=== PATIENT | male | born 1980 | race Caucasian/White ===

== ENCOUNTER 2018-10-01 13:38 | Inpatient (IN) | payer SELFPAY ==
[~2018-10-01] VITALS: Ht 195.6 cm; Wt 149.2 kg
[2018-10-01] MEDS ORDERED: ZESTRIL40 MG PO (13:47)
[2018-10-01 14:06] LABS: BASOPHILS 0.1 % (0-2); EOSINOPHILS 0.9 % (0-7); HEMATOCRIT 45.4 % (42.0-54.0); HEMOGLOBIN 16.5 g/dL (13.5-17.5); IMMATURE GRANULOCYTES 0.4 % (0-5); LYMPHOCYTES 22.1 % (15-50); MCH 32.2 pg (26.0-34.0); MCHC 36.3 g/dL (31.0-37.0); MCV 88.5 fL (80.0-100.0); MEAN PLATELET VOLUME 9.4 fL (7.4-10.4); MONOCYTES 5.1 % (2-11); NEUTROPHILS 71.4 % (40-80); PLATELET COUNT 319 10x3/uL (130-400); RBC 5.13 10x6/uL (4.20-6.10); RDW 12.6 % (11.5-14.5); WBC 16.4 10x3/uL (4.8-10.8)
[2018-10-01 14:12] LABS: APPEARANCE CLEAR (CLEAR); BILIRUBIN NEGATIVE (NEGATIVE); COLOR YELLOW (YELLOW); GLUCOSE 250 mg/dL (NEGATIVE); KETONE NEGATIVE (NEGATIVE); NITRITE NEGATIVE (NEGATIVE); PROTEIN 1+ mg/dL (NEGATIVE); UROBILINOGEN NORMAL (NORMAL)
[2018-10-01 14:13] LABS: BACTERIA FEW /hpf (NONE SEEN); EPITHELIAL CELLS 0-5 /hpf (0-5); RED CELLS - URINE 0-5 /hpf (0-5); WHITE CELLS - URINE 0-5 /hpf (0-5)
[2018-10-01 14:17] LABS: ANION GAP 11.5 mmol/L (8-16); BILIRUBIN - TOTAL 0.72 mg/dL (0.2-1.3); CALCIUM 9.6 mg/dL (8.5-10.1); CREATININE - SERUM 1.3 mg/dL (0.6-1.3); POTASSIUM - SERUM 4.5 mmol/L (3.5-5.1); PROTEIN - SERUM 8.6 g/dL (6.4-8.2)
[2018-10-01 16:49] VITALS: BP 138/72
--- NOTE | 2018-10-01 17:25 | NUR ---
RECEIVED PT TO ROOM 1213 VIA WHEELCHAIR, PT WAS ABLE TO TRANSFER SELF FROM WHEELCHAIR TO BED WITH STEADY GATE. PT A/O X4, RESP EVEN AND NONLABORED ON RA. PT RATES PAIN 3/10 AT THIS TIME. PT ACCOMPANIED BY FEMALE FRIEND. WILL ASSESS PT AND START PLAN OF CARE.
[2018-10-01 17:44] VITALS: BP 140/85; BMI 39.1
--- NOTE | 2018-10-01 19:34 | NUR ---
PATIENT RESTING IN BED WITH NO S/S OF DISTRESS AND DENIES NEEDS AT THIS TIME. BED IN LOWEST POSITION AND CALL LIGHT WITHIN REACH. ENCOURAGED THE PATIENT TO CALL IF SHE HAS NEEDS. WILL CONTINUE TO MONITOR.
[2018-10-01 20:00] VITALS: BP 137/86
[2018-10-02] VITALS (7 sets, daily range): BP systolic 132–152; BP diastolic 70–87; BMI 39.0
[2018-10-02 06:34] LABS: BASOPHILS 0.2 % (0-2); EOSINOPHILS 1.6 % (0-7); HEMOGLOBIN 14.7 g/dL (13.5-17.5); IMMATURE GRANULOCYTES 0.6 % (0-5); LYMPHOCYTES 20.8 % (15-50); MCH 31.4 pg (26.0-34.0); MCV 89.7 fL (80.0-100.0); MEAN PLATELET VOLUME 9.6 fL (7.4-10.4); MONOCYTES 7.9 % (2-11); NEUTROPHILS 68.9 % (40-80); PLATELET COUNT 271 10x3/uL (130-400); RBC 4.68 10x6/uL (4.20-6.10); WBC 16.1 10x3/uL (4.8-10.8)
[2018-10-02 06:53] LABS: CALC OSMOLALITY 270 mosm/kg (275-300); CALCIUM 8.7 mg/dL (8.5-10.1); CARBON DIOXIDE 29.8 mmol/L (21.0-32.0); CHLORIDE - SERUM 99 mmol/L (98-107); CHOLESTEROL, TOTAL 154 mg/dL (0-200); CREATININE - SERUM 1.1 mg/dL (0.6-1.3); GLUCOSE 107 mg/dL (74-106); HDL CHOLESTEROL 22 mg/dL (32-96); LDL CHOLESTEROL 101 mg/dL (0-100); LDL-HDL RATIO 4.6 ratio (1.5-3.5); POTASSIUM - SERUM 4.4 mmol/L (3.5-5.1); SODIUM 136 mmol/L (136-145); TRIGLYCERIDE 158 mg/dL (30-200); eGFR NON AFRICAN AMERICAN 80 mL/min (90-120)
[2018-10-02 06:54] LABS: UREA NITROGEN 11 mg/dL (7-18)
--- NOTE | 2018-10-02 07:51 | NUR ---
ROUNDING DONE WITH PATIENT INQUIRING ON LAB VALUES. I GAVE HIM WHAT WAS ON THE COMPUTER AT THIS TIME. LEFT AC PIV SEEN WITH NS INFUSING AT 125 CC/HR ALONG WITH OCCUPATIONAL HEALTH PROFESSIONAL MS FOR PAIN CONTROL. RATES PAIN 4/10 THIS AM. GLASSES ON. WILL MONITOR. ON CLEAR LIQUIDS.
[2018-10-02 09:08] LABS: AMYLASE - SERUM 247 U/L (25-115); LIPASE 1318 U/L (73-393)
--- NOTE | 2018-10-02 10:50 | NUR ---
JORGE D'CD ORDERED WITH MYSELF AND ELLEN VALDESLEAD BI DEVELOPER.
--- NOTE | 2018-10-02 12:04 | NUR ---
STILL NPO FOR ULTRASOUND OF ABDOMEN.
--- NOTE | 2018-10-02 12:14 | MORECARE ---
CASE MANAGEMENT DISCHARGE SUMMARY PATIENT: MANPREET MOE II UNIT: [id number] ADM DATE: 10/01/18 AGE: 38 : 82 SEX: M ROOM/BED: D.1213 AUTHOR: REINALDO PNIEDA PHYSICIAN: REFERRING PHYSICIAN: TONY LECHUGA MD DATE OF SERVICE: 10/02/18 Discharge Plan Patient Name: MANPREET MOE [facility] [facility] 1980 Planned Disposition: Home Anticipated Discharge Date: Discharge Date: Expected LOS: Initial Reviewer: [email or web address] Initial Review Date: 10/02/2018 Generated: 10/02/18 1:14 pm Patient Name: MANPREET MOE Page 53260 at 1214 All edits/amendments must be made on the electronic document DICTATION DATE: 10/02/18 1213 UNDERBASTER: ROLO 10/02/18 1213 RPT#: [id number] DC DATE: STATUS: ADM IN [facility] [address] [place] [address] END OF REPORT
--- NOTE | 2018-10-02 12:22 | MORECARE ---
CASE MANAGEMENT DISCHARGE SUMMARY PATIENT: MANPREET MOE II UNIT: [id number] ADM DATE: 10/01/18 AGE: 38 : 82 SEX: M ROOM/BED: D.1213 AUTHOR: REINALDO PINEDA PHYSICIAN: REFERRING PHYSICIAN: TONY LECHUGA MD DATE OF SERVICE: 10/02/18 Discharge Plan Patient Name: MANPREET MOE Facility: [facility]:[place] : 1980 Planned Disposition: Home Anticipated Discharge Date: Discharge Date: Expected LOS: Initial Reviewer: [email or web address] Initial Review Date: 10/02/2018 Generated: 10/02/18 1:22 pm Comments DCP- Discharge Planning Updated by [email or web address]: Sarah Taylor on 10/02/18 11:[address] Patient Name: MANPREET MOE Admission Status: ER Accout number: [id number] Admission Date: 10-01-2018 : 1980 Admission Diagnosis: Attending: TONY LECHUGA Current LOS: 1 Anticipated DC Date: Planned Disposition: Home Primary Insurance: UNINSURED DISCOUNT PLAN CM MEET WITH PT AFTER GETTING VERBAL CONSENT TO CONTINUE WITH INITAL ASSESSMENT AND DISCHARGE NEEDS. CM EDUCATED ON ROLE OF CM AND THE SERVICES AVALIABLE SUCH HH, REHAB AND DME SERVICES. PT LIVES AT HOME WITH FAMILY STATES HOME IS A SAFE DC PLAN. DENIES ANY CM NEEDS. CM WILL CONTINUE TO FOLLOW. Desulfurizer Operator: Sarah Taylor DCPIA - Discharge Planning Initial Assessment Updated by [email or web address]: Sarah Taylor on 10/02/18 12:15 pm * Is the patient Alert and Oriented? Yes * How many steps to enter\exit or inside your home? * PCP WISAM * Pharmacy [facility] * Preadmission Environment Home with Family * ADLs Independent * Verbal permission to speak to the caregivers and representatives has been obtained from the patient. N/A * Additional services required to return to the preadmission environment? No * Can the patient safely return to the preadmission environment? Yes * Has this patient been hospitalized within the prior 30 days at any hospital? No Last DP export: 10/02/18 11:14 a Patient Name: MANPREET MOE Page 24994 at 1222 All edits/amendments must be made on the electronic document DICTATION DATE: 10/02/181220 FARMWORKER ANIMAL: ROLO 10/02/181220 RPT#: [id number] DC DATE: STATUS: ADM IN [facility] [address] [place] [address] END OF REPORT
--- NOTE | 2018-10-02 12:42 | NUR ---
URINE CULTURE SENT TO LAB ORDERED.
--- NOTE | 2018-10-02 14:04 | NUR ---
DR LECHUGA IN TO SEE PATIENT.
--- NOTE | 2018-10-02 14:44 | NUR ---
STILL NPO AWAITING ULTRASOUND. GIRLFRIEND ASLEEP IN CHAIR.
--- NOTE | 2018-10-02 15:44 | NUR ---
CONSUMER ADVOCATE AT ROOM.
--- NOTE | 2018-10-02 16:20 | NUR ---
ULTRASOUND DONE. JELLO AND LARGE ICE WATER GIVEN TO PATIENT PER HIS REQUEST.
--- NOTE | 2018-10-02 16:47 | NUR ---
REFUSES SCD'S PATIENT IS UP AND DOWN TO RESTROOM.
--- NOTE | 2018-10-02 17:37 | NUR ---
PATIENT STATES TO "PASSING A WET FART". ON CLEAR LIQUIDS. GIRL FRIEND AT BEDSIDE. PATIENT STATES, " SO FAR I CAM KEEPING THE LIQUIDS DOWN". CALL LIGHT AT SIDE. WILL MONITOR.
--- NOTE | 2018-10-02 19:20 | NUR ---
PATIENT RESTING IN BED WITH NO S/S OF DISTRESS AND GUEST AT BEDSIDE. PATIENT DENIES NEEDS AT THIS TIME. BED IN LOWEST POSITION AND CALL LIGHT WITHIN REACH. ENCOURAGED THE PATIENT TO CALL IF SHE HAS NEEDS. WILL CONTINUE TO MONITOR.
[2018-10-03 04:00] VITALS: BP 140/76
--- NOTE | 2018-10-03 07:07 | NUR ---
LYING IN BED, EYES OPEN, APPEARS TO BE RESTING COMFORTABLY. LAB HERE TO DRAW BLOOD THIS AM. NORMAL SALINE AT 75ML/HR TO LEFT AC.ABLE TO VOICE ALL NEEDS. WILL NOTE ANY CHANGE.
[2018-10-03 07:23] LABS: BASOPHILS 0.2 % (0-2); EOSINOPHILS 1.8 % (0-7); HEMATOCRIT 41.4 % (42.0-54.0); HEMOGLOBIN 14.4 g/dL (13.5-17.5); IMMATURE GRANULOCYTES 0.3 % (0-5); MCH 31.4 pg (26.0-34.0); MCHC 34.8 g/dL (31.0-37.0); MCV 90.2 fL (80.0-100.0); MEAN PLATELET VOLUME 9.4 fL (7.4-10.4); MONOCYTES 8.3 % (2-11); NEUTROPHILS 67.4 % (40-80); PLATELET COUNT 244 10x3/uL (130-400); RBC 4.59 10x6/uL (4.20-6.10); RDW 12.9 % (11.5-14.5)
[2018-10-03 07:27] LABS: WBC 11.8 10x3/uL (4.8-10.8)
[2018-10-03 07:35] LABS: AMYLASE - SERUM 243 U/L (25-115); CALC OSMOLALITY 270 mosm/kg (275-300); CALCIUM 8.9 mg/dL (8.5-10.1); CARBON DIOXIDE 31.3 mmol/L (21.0-32.0); CHLORIDE - SERUM 101 mmol/L (98-107); CREATININE - SERUM 1.1 mg/dL (0.6-1.3); GLUCOSE 93 mg/dL (74-106); LIPASE 1220 U/L (73-393); POTASSIUM - SERUM 4.4 mmol/L (3.5-5.1); SODIUM 136 mmol/L (136-145); UREA NITROGEN 9 mg/dL (7-18); eGFR NON AFRICAN AMERICAN 80 mL/min (90-120)
[2018-10-03 07:40] VITALS: BP 155/89
--- NOTE | 2018-10-03 10:36 | NUR ---
I have reviewed this patient and I concur with the Shift Assessment completed by the Licensed Practical Nurse today this shift.
[2018-10-03 11:32] VITALS: BP 145/81
--- NOTE | 2018-10-03 13:50 | NUR ---
REFUSED SHOWER FOR TODAY.
[2018-10-03 15:36] VITALS: BP 136/77
--- NOTE | 2018-10-03 16:10 | NUR ---
DR GREENBERG IN TO SEE PATIENT.
[2018-10-03 16:24] VITALS: Ht 195.6 cm; Wt 149.2 kg
--- NOTE | 2018-10-03 19:07 | NUR ---
PT IN BED FAMILY AT BEDSIDE. PT REQUESTS PAIN MED WHEN HE GOES TO SLEEP.
[2018-10-03 20:04] VITALS: BP 156/85
[2018-10-04] VITALS: BP 142/80
[2018-10-04 04:15] VITALS: BP 133/78
[2018-10-04 06:48] LABS: BASOPHILS 0.3 % (0-2); EOSINOPHILS 2.1 % (0-7); IMMATURE GRANULOCYTES 0.4 % (0-5); LYMPHOCYTES 24.7 % (15-50); MCH 31.4 pg (26.0-34.0); MCV 89.7 fL (80.0-100.0); MEAN PLATELET VOLUME 9.2 fL (7.4-10.4); MONOCYTES 8.1 % (2-11); NEUTROPHILS 64.4 % (40-80); PLATELET COUNT 232 10x3/uL (130-400); RBC 4.46 10x6/uL (4.20-6.10); RDW 12.7 % (11.5-14.5); WBC 10.8 10x3/uL (4.8-10.8)
[2018-10-04 06:56] LABS: CALC OSMOLALITY 270 mosm/kg (275-300); CARBON DIOXIDE 28.5 mmol/L (21.0-32.0); CHLORIDE - SERUM 102 mmol/L (98-107); GLUCOSE 95 mg/dL (74-106); LIPASE 741 U/L (73-393); SODIUM 136 mmol/L (136-145); UREA NITROGEN 9 mg/dL (7-18); eGFR NON AFRICAN AMERICAN 89 mL/min (90-120)
--- NOTE | 2018-10-04 07:05 | NUR ---
ROUNDING DONE WITH PATIENT LOOKING AT CELL PHONE, FEMALE MEMBER IN CHAIR SLEEPING. GLASSES ON. ON ROOM AIR. OBESE. LEFT AC PIV SEEN WITH NS INFUSING AT 75 CC/HR. ON EP, NO LAB VALUES AT THIS TIME. WILL MONITOR.
[2018-10-04 07:13] LABS: AMYLASE - SERUM 160 U/L (25-115)
[2018-10-04 07:26] VITALS: BP 128/74
--- NOTE | 2018-10-04 07:41 | NUR ---
EP RESULTS ARE IN WITH K+ 4.0, NO NEED FOR ORAL SUPPLEMENTS.
[2018-10-04 11:27] VITALS: BP 151/80
--- NOTE | 2018-10-04 11:32 | NUR ---
B/P UP SLIGHTLY FROM THIS AM ALONG WITH SLIGHT FEVER. INSTRUCTED TO COUGH AND DEPP BREATH. AT BEDSIDE.
--- NOTE | 2018-10-04 13:05 | NUR ---
DR GREENBERG IN TO SEE PATIENT.
[2018-10-04 16:18] VITALS: BP 145/73
--- NOTE | 2018-10-04 17:48 | NUR ---
AND SON AT BEDSIDE. DENIES NEEDS AT THIS TIME.
--- NOTE | 2018-10-04 19:10 | NUR ---
PATIENT RESTING IN BED WITH FAMILY AT BEDSIDE AND DENIES NEEDS AT THIS TIME. BED IN LOWEST POSITION AND CALL LIGHT WITHIN REACH. ENCOURAGED THE PATIENT TO CALL IF HE HAS NEEDS. WILL CONTINUE TO MONITOR.
[2018-10-04 19:58] VITALS: BP 154/73
[2018-10-05 00:49] VITALS: BP 151/77
[2018-10-05 06:00] VITALS: BP 143/84
[2018-10-05 06:50] LABS: BASOPHILS 0.2 % (0-2); EOSINOPHILS 1.9 % (0-7); HEMATOCRIT 39.2 % (42.0-54.0); HEMOGLOBIN 13.9 g/dL (13.5-17.5); IMMATURE GRANULOCYTES 0.4 % (0-5); LYMPHOCYTES 26.7 % (15-50); MCH 31.2 pg (26.0-34.0); MCHC 35.5 g/dL (31.0-37.0); MCV 88.1 fL (80.0-100.0); MEAN PLATELET VOLUME 9.3 fL (7.4-10.4); MONOCYTES 8.8 % (2-11); PLATELET COUNT 240 10x3/uL (130-400); RBC 4.45 10x6/uL (4.20-6.10); RDW 12.5 % (11.5-14.5)
[2018-10-05 06:56] LABS: CALC OSMOLALITY 275 mosm/kg (275-300); CALCIUM 8.7 mg/dL (8.5-10.1); CARBON DIOXIDE 27.4 mmol/L (21.0-32.0); CHLORIDE - SERUM 104 mmol/L (98-107); CREATININE - SERUM 1.1 mg/dL (0.6-1.3); GLUCOSE 110 mg/dL (74-106); LIPASE 600 U/L (73-393); POTASSIUM - SERUM 3.9 mmol/L (3.5-5.1); SODIUM 138 mmol/L (136-145); UREA NITROGEN 9 mg/dL (7-18); eGFR NON AFRICAN AMERICAN 80 mL/min (90-120)
[2018-10-05 06:57] LABS: AMYLASE - SERUM 116 U/L (25-115)
[2018-10-05 07:44] VITALS: BP 152/96
--- NOTE | 2018-10-05 10:15 | NUR ---
Nutrition Follow Up: Chart reviewed. Pt is tolerating regular diet with 100% meal avg. +BM 10/02/18. Meds and labs reviewed. Rec continue current diet as tolerated. RD following.
[2018-10-05 11:15] VITALS: BP 147/88
--- NOTE | 2018-10-05 11:19 | NUR ---
PT RESTING IN BED. AT BEDSIDE. DENIES ANY NEEDS AT THIS TIME, WILL CONT TO FOLLOW POC
[2018-10-05] MEDS ORDERED: MIRALAX17 GM PO (11:56)
--- NOTE | 2018-10-05 12:25 | MORECARE ---
CASE MANAGEMENT DISCHARGE SUMMARY PATIENT: MANPREET MOE II UNIT: [id number] ADM DATE: 10/01/18 AGE: 38 : 82 SEX: M ROOM/BED: D.1213 AUTHOR: EDWIN,DOC PHYSICIAN: REFERRING PHYSICIAN: TONY LECHUGA MD DATE OF SERVICE: 10/05/18 Discharge Plan Patient Name: MANPREET MOE Facility: [facility]:[place] : 1980 Planned Disposition: Home Anticipated Discharge Date: Discharge Date: Expected LOS: Initial Reviewer: [email or web address] Initial Review Date: 10/02/2018 Generated: 10/05/18 1:25 pm Comments DCP- Discharge Planning Updated by [email or web address]: Daina Chung on 10/05/18 11:[address] PATIENT DISCHARGED TO HOME THIS AM. MIRALAX ORDERED 10/04/18 BUT FIRST DOSE GIVEN TODAY. DULCOLAX SUPP X1 10/04/18 ?? ONE BM SINCE ADMISSION. PATIENT WAS TO AMBULATE 10/04/18. IVFS DC'D AND WAS SALINE LOCKED . DCP- Discharge Planning Updated by [email or web address]: Sarah Taylor on 10/02/18 11:[address] Patient Name: MANPREET MOE Admission Status: ER Accout number: [id number] Admission Date: 10-01-2018 : 1980 Admission Diagnosis: Attending: TONY LECHUGA Current LOS: 1 Anticipated DC Date: Planned Disposition: Home Primary Insurance: UNINSURED DISCOUNT PLAN CM MEET WITH PT AFTER GETTING VERBAL CONSENT TO CONTINUE WITH INITAL ASSESSMENT AND DISCHARGE NEEDS. CM EDUCATED ON ROLE OF CM AND THE SERVICES AVALIABLE SUCH HH, REHAB AND DME SERVICES. PT LIVES AT HOME WITH FAMILY STATES HOME IS A SAFE DC PLAN. DENIES ANY CM NEEDS. CM WILL CONTINUE TO FOLLOW. Route Driver Coin Machines: Sarah Taylor DCPIA - Discharge Planning Initial Assessment Updated by [id number]: Sarah Taylor on 10/02/18 12:15 pm * Is the patient Alert and Oriented? Yes * How many steps to enter\exit or inside your home? * PCP WISAM * Pharmacy [facility] * Preadmission Environment Home with Family * ADLs Independent * Verbal permission to speak to the caregivers and representatives has been obtained from the patient. N/A * Additional services required to return to the preadmission environment? No * Can the patient safely return to the preadmission environment? Yes * Has this patient been hospitalized within the prior 30 days at any hospital? No Last DP export: 10/02/18 11:22 a Patient Name: MANPREET MOE Page 63970 at 1225 All edits/amendments must be made on the electronic document DICTATION DATE: 10/05/18 1224 EMBEDDED HARDWARE ENGINEER: ROLO 10/05/18 1224 RPT#: [id number] DC DATE: STATUS: ADM IN [facility] [address] [place] [address] END OF REPORT
--- NOTE | 2018-10-05 12:40 | MORECARE ---
CASE MANAGEMENT DISCHARGE SUMMARY PATIENT: MANPREET MOE II UNIT: [id number] ADM DATE: 10/01/18 AGE: 38 : 82 SEX: M ROOM/BED: D.1213 AUTHOR: EDWIN,DOC PHYSICIAN: REFERRING PHYSICIAN: TONY LECHUGA MD DATE OF SERVICE: 10/05/18 Discharge Plan Patient Name: MANPREET MOE Facility: [facility]:[place] : 1980 Planned Disposition: Home Anticipated Discharge Date: 10/05/18 Discharge Date: Expected LOS: 4 Initial Reviewer: [email or web address] Initial Review Date: 10/02/2018 Generated: 10/05/18 1:40 pm Comments DCP- Discharge Planning Updated by [email or web address]: Daina Chung on 10/05/18 11:[address] PATIENT DISCHARGED TO HOME THIS AM. MIRALAX ORDERED 10/04/18 BUT FIRST DOSE GIVEN TODAY. DULCOLAX SUPP X1 10/04/18 ?? ONE BM SINCE ADMISSION. PATIENT WAS TO AMBULATE 10/04/18. IVFS DC'D AND WAS SALINE LOCKED . DCP- Discharge Planning Updated by [email or web address]: Sarah Taylor on 10/02/18 11:[address] Patient Name: MANPREET MOE Admission Status: ER Accout number: [id number] Admission Date: 10-01-2018 : 1980 Admission Diagnosis: Attending: TONY LECHUGA Current LOS: 1 Anticipated DC Date: Planned Disposition: Home Primary Insurance: UNINSURED DISCOUNT PLAN CM MEET WITH PT AFTER GETTING VERBAL CONSENT TO CONTINUE WITH INITAL ASSESSMENT AND DISCHARGE NEEDS. CM EDUCATED ON ROLE OF CM AND THE SERVICES AVALIABLE SUCH HH, REHAB AND DME SERVICES. PT LIVES AT HOME WITH FAMILY STATES HOME IS A SAFE DC PLAN. DENIES ANY CM NEEDS. CM WILL CONTINUE TO FOLLOW. Mobility Manager: Sarah Taylor DCPIA - Discharge Planning Initial Assessment Updated by [email or web address]: Sarah Taylor on 10/02/18 12:15 pm * Is the patient Alert and Oriented? Yes * How many steps to enter\exit or inside your home? * PCP WISAM * Pharmacy [facility] * Preadmission Environment Home with Family * ADLs Independent * Verbal permission to speak to the caregivers and representatives has been obtained from the patient. N/A * Additional services required to return to the preadmission environment? No * Can the patient safely return to the preadmission environment? Yes * Has this patient been hospitalized within the prior 30 days at any hospital? No Last DP export: 10/05/18 11:25 a Patient Name: MANPREET MOE Page 95166 at 1240 All edits/amendments must be made on the electronic document DICTATION DATE: 10/05/18 124 REFLESHER: ROLO 10/05/18 1240 RPT#: [id number] DC DATE: STATUS: ADM IN [facility] [address] [place] [address] END OF REPORT
--- NOTE | 2018-10-05 12:47 | MORECARE ---
CASE MANAGEMENT DISCHARGE SUMMARY PATIENT: MANPREET MOE II UNIT: [id number] ADM DATE: 10/01/18 AGE: 38 : 82 SEX: M ROOM/BED: D.1213 AUTHOR: EDWIN,DOC PHYSICIAN: REFERRING PHYSICIAN: TONY LECHUGA MD DATE OF SERVICE: 10/05/18 Discharge Plan Patient Name: MANPREET MOE Facility: [facility]:[place] : 1980 Planned Disposition: Home Anticipated Discharge Date: 10/05/18 Discharge Date: Expected LOS: 4 Initial Reviewer: [email or web address] Initial Review Date: 10/02/2018 Generated: 10/05/18 1:47 pm Comments DCP- Discharge Planning Updated by [email or web address]: Daina Chung on 10/05/18 11:[address] VISITED WITH THE PATIENT AT THE BEDSIDE. HE HAS TRANSPORTATION TO HOME. DENIES ANY NEEDS. HE WILL BE ABLE TO OBTAIN HIS MEDICATIONS. DENIES ANY QUESTIONS OR CONCERNS. HAD SMALL BOWEL MOVEMENT THIS AM. HAS BEEN UP TO AMBULATE AND TOLERATED WELL. DISCUSSED DRINKING FLUIDS, EATING VEGETABLES AND FRUITS AND TAKING THE MIRALAX TO ASSIST W/ CONSTIPATION ISSUE. ADVISED PRIMARY NURSE THE PATIENT IS READY FOR DISCHARGE. DCP- Discharge Planning Updated by [email or web address]: Daina Chung on 10/05/18 11:[address] PATIENT DISCHARGED TO HOME THIS AM. MIRALAX ORDERED 10/04/18 BUT FIRST DOSE GIVEN TODAY. DULCOLAX SUPP X1 10/04/18 ?? ONE BM SINCE ADMISSION. PATIENT WAS TO AMBULATE 10/04/18. IVFS DC'D AND WAS SALINE LOCKED . DCP- Discharge Planning Updated by [email or web address]: Sarah Taylor on 10/02/18 11:[address] Patient Name: MANPREET MOE Admission Status: ER Accout number: [id number] Admission Date: 10-01-2018 : 1980 Admission Diagnosis: Attending: TONY LECHUGA Current LOS: 1 Anticipated DC Date: Planned Disposition: Home Primary Insurance: UNINSURED DISCOUNT PLAN CM MEET WITH PT AFTER GETTING VERBAL CONSENT TO CONTINUE WITH INITAL ASSESSMENT AND DISCHARGE NEEDS. CM EDUCATED ON ROLE OF CM AND THE SERVICES AVALIABLE SUCH HH, REHAB AND DME SERVICES. PT LIVES AT HOME WITH FAMILY STATES HOME IS A SAFE DC PLAN. DENIES ANY CM NEEDS. CM WILL CONTINUE TO FOLLOW. Ore Feeder: Sarah Taylor DCPIA - Discharge Planning Initial Assessment Updated by [email or web address]: Sarah Taylor on 10/02/18 12:15 pm * Is the patient Alert and Oriented? Yes * How many steps to enter\exit or inside your home? * PCP WISAM * Pharmacy [facility] * Preadmission Environment Home with Family * ADLs Independent * Verbal permission to speak to the caregivers and representatives has been obtained from the patient. N/A * Additional services required to return to the preadmission environment? No * Can the patient safely return to the preadmission environment? Yes * Has this patient been hospitalized within the prior 30 days at any hospital? No Last DP export: 10/05/18 11:40 a Patient Name: MANPREET MOE Page [id number] at 1247 All edits/amendments must be made on the electronic document DICTATION DATE: 10/05/18 124 AIRCRAFT LAY OUT WORKER: ROLO 10/05/18 1247 RPT#: [id number] DC DATE: STATUS: ADM IN [facility] [address] [place] [address] END OF REPORT
--- NOTE | 2018-10-05 13:19 | NUR ---
DISCHARGE INSTRUCTIONS REVIEWED WITH PT AND ALL QUESTIONS ANSWERED. PIV REMOVED WITH CATHETER TIP INTACT. ASSISTED PT TO FRONT OF HOSPITAL VIA WHEELCHAIR. PT LEFT WITH HIS .
== END 2018-10-05 13:21 | disposition home or self-care (01) | DRG 439 ==
LOC: D.ER 13:38 → D.M3 17:07
PROVIDERS: Emergency Medicine; ADMIT Internal Medicine Nephrology; ATTEND Internal Medicine Nephrology
DX: K85.90 Acute pancreatitis without necrosis or infection, unspecified (principal); E87.1 Hypo-osmolality and hyponatremia; I10 Essential (primary) hypertension; E66.01 Morbid (severe) obesity due to excess calories; Z68.39 Body mass index [BMI] 39.0-39.9, adult

== ENCOUNTER 2019-08-07 13:19 | Emergency (ER) | payer SELFPAY ==
[~2019-08-07] VITALS: Ht 195.6 cm; Wt 147.7 kg
[~2019-08-07 13:19] MED LIST: MIRALAX17 GM PO; ZESTRIL40 MG PO
[2019-08-07 13:28] VITALS: Ht 195.6 cm; Wt 147.7 kg
[2019-08-07] MEDS ORDERED: BP MED (13:33)
[2019-08-07] MEDS ORDERED: ZYLOPRIM100 MG PO (13:33)
[2019-08-07] MEDS ORDERED: COLCRYS0.6 MG PO (14:30)
[2019-08-07 14:51] VITALS: BP 125/71
== END 2019-08-07 15:12 | disposition home or self-care (01) ==
LOC: D.ER 13:19
DX: M10.9 Gout, unspecified (principal); M25.572 Pain in left ankle and joints of left foot; I10 Essential (primary) hypertension